=== PATIENT | male | born 2000 | race African-American/Black ===

== ENCOUNTER 2021-09-05 16:09 | Emergency (ER) | payer OTHER ==
[~2021-09-05] VITALS: Ht 177.8 cm; Wt 61.2 kg
[2021-09-05 16:29] VITALS: BP 112/68
[2021-09-05 17:31] LABS: Basophils # (auto) 0.1 10 ^3/uL (0-0.2); Mean Corpuscular Volume 77.7 fL (80.0-100.0); Nucleated Red Blood Cells % 0.1 %; Red Blood Cells 5.46 10^6/uL (4.5-5.90)
[2021-09-05 17:33] LABS: Basophils % (auto) 0.8 % (0.0-2.0); Eosinophils # (auto) 0.4 10 ^3/uL (0-0.8); Eosinophils % (auto) 5.1 % (0.0-7.0); Hematocrit 42.5 % (41.0-53.0); Hemoglobin 13.8 g/dL (13.5-17.5); Lymphocytes # (auto) 1.4 10 ^3/uL (0.4-5.4); Lymphocytes % (auto) 19.4 % (10.0-50.0); Mean Corpuscular Hemoglobin 25.3 pg (28.0-32.0); Mean Corpuscular Hgb Conc. 32.6 g/dL (32.0-36.0); Monocytes # (auto) 0.6 10 ^3/uL (0-1.3); Monocytes % (auto) 8.1 % (0.0-12.0); Neutrophils # (auto) 4.8 10 ^3/uL (1.6-8.6); Neutrophils % (auto) 66.6 % (37.0-80.0); White Blood Cell 7.3 10^3/uL (4.4-10.8)
[2021-09-05 17:46] LABS: Albumin 3.8 g/dL (3.4-5.0); BUN/Creatinine Ratio 7.4; Calcium 9.6 mg/dL (8.5-10.1); Potassium 3.9 mmol/L (3.5-5.1)
[2021-09-05 17:48] LABS: Bilirubin, Total 0.6 mg/dL (0.2-1.0); Total Protein 8.7 g/dL (6.4-8.2)
== END 2021-09-05 18:11 | disposition left against medical advice (07) ==
LOC: EDBD 16:09 → ER 16:12
DX: R42 Dizziness and giddiness (principal); R51.9 Headache, unspecified; Z53.21 Procedure and treatment not carried out due to patient leaving prior to being seen by health care provider
CPT/HCPCS: 36415; 80053; 85025; 93005